=== PATIENT | male | born 1995 | race Caucasian/White ===

== ENCOUNTER 2016-10-05 00:41 | Emergency (ER) | payer OTHER ==
[~2016-10-05] VITALS: Ht 188 cm; Wt 84.5 kg
[~2016-10-05 00:41] MED LIST: IBUP800T25 PO
[2016-10-05 01:30] VITALS: Ht 188 cm; Wt 84.5 kg
--- NOTE | 2016-10-05 03:18 | ERD ---
ER Documentation Chief Complaint Date/Time DATE: 10/05/16 TIME: 03:14 Chief Complaint constipation X2 weeks,denies abd pain HPI 20-year-old male presents to the emergency room for constipation for 2 weeks. Denies abdominal pain. No nausea and vomiting. Stated that he had a bowel movement 4 days ago with hard stools. Denies headache, loss of consciousness, dizziness, blurry vision, changes in vision, photophobia, facial pain, ear pain, throat pain, difficulty swallowing, neck pain, shoulder pain, chest pain, cough, hemoptysis, abdominal pain, back pain, loss of appetite, nausea, vomiting, hematochezia, diarrhea, urinary symptoms, bladder and bowel incontinences, extremity weakness, extremity tenderness, numbness or tingling sensation, difficulty walking, recent travel, recent exposure to illness, recent antibiotic use in the last 3 months, fever, chills. No known drug allergies. No past medical histories. No surgical history. Does not take any prescription medications at home. Social history: Not working at this time. Denies smoking, use of alcoholic beverages, use of illegal drugs. No antibiotic use for the last 3 months. Physical exam Alert oriented 4. Lung sounds are clear to auscultation. Active bowel sounds. No right upper abdominal tenderness on light and deep palpation. No right lower abdominal tenderness on light and deep palpation. No left upper abdominal tenderness on light and deep palpation. No left lower abdominal tenderness on light and deep palpation. No CVA tenderness. Negative Rovsing sign. Negative and mitral sign. Able to jump 10 times without abdominal pain. Ambulatory with steady gait. Prescription: Magnesium citrate. Dulcolax. We will follow-up with his primary care physician in the next 24-48 hours. y/o male presents to ED for []. Described as []. Pain rate of 0/0. Started while[]. Worse when[]. Relieved by[]. Took[]with no relief. Denies headache, loss of consciousness, dizziness, blurry vision, changes in vision, photophobia, facial pain, ear pain, throat pain, difficulty swallowing, neck pain, shoulder pain, chest pain, cough, hemoptysis, abdominal pain, back pain, loss of appetite, nausea, vomiting, hematochezia, diarrhea, constipation, urinary symptoms, bladder and bowel incontinences, extremity weakness, extremity tenderness, numbness or tingling sensation, difficulty walking, recent travel, recent exposure to illness, recent antibiotic use in the last 3 months, fever, chills. Allergy: PMH: Medications: Surgery: Family history: Primary Social History: Denies smoking, use of alcohol, use of illegal drugs. ROS All systems reviewed and are negative except as per history of present illness. Medications Home Meds Active Scripts Magnesium Citrate* (Magnesium Citrate*) 296 Ml Solution, 296 ML PO ONCE, #1 BOTTLE Prov:PASILABANHECTORAR F 10/05/16 Bisacodyl (Dulcolax) 10 Mg Supp.rect, 10 MG RC every day Y for constipation for 3 Days, SUPP.RECT Prov:PASILABAN,HECTORAR F 10/05/16 Ibuprofen* (Motrin*) 800 Mg Tab, 800 MG PO Q6 Y for PAIN, #14 TAB Prov:QUINTIN BORJA PA-C 10/19/15 Allergies Allergies: Coded Allergies: No Known Allergy (Unverified , 03/20/14) PMhx/Soc History of Surgery: Yes (hip sx) Anesthesia Reaction: No Hx Neurological Disorder: No Hx Respiratory Disorders: No Hx Cardiac Disorders: No Hx Psychiatric Problems: No Hx Miscellaneous Medical Probl: No Hx Alcohol Use: Yes (occasionally) Hx Substance Use: No Hx Tobacco Use: No (quit) Smoking Status: Former smoker Physical Exam Vitals Vital Signs Date Time Temp Pulse Resp B/P Pulse Ox O2 Delivery O2 Flow Rate FiO2 10/05/16 01:30 97.1 64 18 115/72 98 Physical Exam CONSTITUTIONAL: Well-appearing; well-nourished; in no apparent distress. HEAD: Normocephalic; atraumatic. EYES: Conjunctiva clear, sclera non-icteric, EOM intact. PERRL Ears: Hearing intact. EACs clear, TMs non-bulging, non-inflamed, translucent & mobile, ossicles normal appearance, No obstructions, no erythema, no discharges Nose: No obstructions. No polyps. No external lesions. Mucosa non-inflamed. No external lesions, septum and turbinates normal. No rhinorrhea. No discharges. Frontal sinus is non-tender to palpation. Maxillary sinus is non-tender to palpation. MOUTH: Moist mucous membranes, no lesion, no obstructions, no vesicles, no thrush, patent airway Throat: Uvula in midline. Right tonsil is +1 with no erythema, no exudate. Left tonsil is +1 with no erythema, no exudate. Tolerating secretions well. Good gag reflex. Patent airway. Neck: Supple, without lesions, bruits, or adenopathy. No mass. Thyroid non- enlarged and non-tender to palpation. CHEST: Symmetrical chest. Respirations even and not labored. No retractions noted. CARDIOVASCULAR: Normal S1, S2. RRR. No murmurs, gallops. RESPIRATORY: Normal chest excursion with respiration; breath sounds clear and equal bilaterally; no wheezes, rhonchi, or rales. Breathing even and unlabored. Speaking in clear, full, and complete sentences w/ ease. ABDOMEN: Normal bowel sounds normal. Soft, round, non-distended, non-guarding, no tenderness, no rebound, no organomegaly, no masses, no pulsating abdominal mass. No hernia. No peritoneal signs. : No CVA tenderness. BACK: Symmetrical shoulder. Spine is midline without deformity, tenderness. No evidence of trauma or deformity. PELVIS: Stable pelvis. No evidence of trauma or deformity. MUSCULOSKELETAL: Normal gait and station. No misalignment, asymmetry, crepitation, defects, tenderness, masses, effusions, decreased range of motion, instability, atrophy or abnormal strength or tone in the head, neck, spine, ribs , pelvis or extremities. No calf tenderness. NEUROVASCULAR: Distal pulses are present. Pedal pulse are present, equal, and normal. Capillary refills are < 2 seconds. NEUROLOGIC: Alert and oriented x4. Speaks full and clear sentences. Cranial Nerves II-XII normal. Sensation to pain, touch, and proprioception normal. Grossly unremarkable. No neurologic deficits. Romberg test is negative. PSYCHOLOGICAL: The patients mood and manner are appropriate. No hallucinations , delusions. Not SI. Not HI. Has the capacity to decide for self SKIN: Normal for age and ethnicity; warm; dry; good turgor; no apparent lesions or exudates. No rashes, hives, discoloration. Intact. Procedures/MDM Examination: Please see physical examination. Disease process, medical treatment was explained to the patient and family member. They verbalized understanding and agreed with the diagnostic tests, medical treatment, and follow-up care. Re-evaluation:Alert oriented 4. Lung sounds are clear to auscultation. Active bowel sounds. No right upper abdominal tenderness on light and deep palpation. No right lower abdominal tenderness on light and deep palpation. No left upper abdominal tenderness on light and deep palpation. No left lower abdominal tenderness on light and deep palpation. No CVA tenderness. Negative Rovsing sign. Negative and mitral sign. Able to jump 10 times without abdominal pain. Ambulatory with steady gait. Consultation: Differential diagnosis: abdominal pain versus constipation versus appendicitis Medical decision makin-year-old male presents to the emergency room for constipation for 2 weeks. Denies abdominal pain. No nausea and vomiting. Stated that he had a bowel movement 4 days ago with hard stools. Patient's complaint, my physical findings, my re-evaluation are consistent with my final diagnosis of constipation. Medications prescribed are the following: Magnesium citrate. Dulcolax. Patient and family member are made aware of the side effects and adverse reactions of the medications prescribed. Instructed on when to seek emergent and medical attention in case allergic/anaphylactic reactions or severe side effects and or adverse reactions to medications. Patient and family member verbalized understanding. Patient instructed Instructed to follow-up with his PCP in 24-48 hours. Stated that he will follow -up with his primary care physician in the next 24-48 hours. Instructed to Call 911 for chest pain, shortness of breath. Advised to come back here in ED as soon as possible for severity of symptoms which includes but not limited to: any new symptoms; shortness of breath/difficulty of breathing; cardiovascular changes; severe gastrointestinal symptoms; signs and symptoms of bleeding and or infection; signs of compartment syndrome/neurovascular changes; neurological changes/deficits. Patient and family member verbalized understanding. Upon discharge, patient is alert and oriented x 4, speaks full and clear sentences, denies pain, has no neurological deficits, has no neurovascular deficits, difficulty of breathing. Breathing even and unlabored. Lung sounds are clear to auscultation. Not in distress. Appears comfortable. Ambulatory with steady gait. Appears satisfied with care provided here in ED. Departure Diagnosis: Primary Impression: Constipation Condition: Good Additional Instructions: Patient instructed Instructed to follow-up with his PCP in 24-48 hours. Stated that he will follow -up with his primary care physician in the next 24-48 hours. Instructed to Call 911 for chest pain, shortness of breath. Advised to come back here in ED as soon as possible for severity of symptoms which includes but not limited to: any new symptoms; shortness of breath/difficulty of breathing; cardiovascular changes; severe gastrointestinal symptoms; signs and symptoms of bleeding and or infection; signs of compartment syndrome/neurovascular changes; neurological changes/deficits. Patient and family member verbalized understanding. TERESA MANDEL Oct 05, 2016 03:18
[2016-10-05] MEDS ORDERED: BISA10SU55 RC (03:20)
[2016-10-05] MEDS ORDERED: MAGN296S40 PO (03:20)
== END 2016-10-05 03:30 | disposition home or self-care (01) ==
LOC: FTE 00:41
DX: K59.00 Constipation, unspecified (principal); Z87.891 Personal history of nicotine dependence
CPT/HCPCS: 99283

== ENCOUNTER 2018-01-03 13:04 | Emergency (ER) | END 2018-01-03 15:10 | disposition home or self-care (01) ==